=== PATIENT | male | born 1980 | race Caucasian/White ===

== ENCOUNTER 2021-09-16 16:44 | Outpatient (CLI) | payer OTHER, SELFPAY ==
--- NOTE | ~2021-09-16 | XR_ITS ---
EXAMINATION: XR shoulder RT min 2V INDICATION: Right shoulder pain TECHNIQUE: Four views of the right shoulder are submitted. COMPARISON: None FINDINGS: Normal alignment. No fracture. Glenohumeral and acromioclavicular joint spaces are normal. Soft tissues are unremarkable. IMPRESSION: 1. No acute osseous abnormality. Reviewed, dictated and finalized at location A. R MECHANIC
== END 2021-09-16 16:45 | disposition home or self-care (01) ==
PROVIDERS: PCP Family Medicine; Visit Provider Physician Assistant
DX: M25.511 Pain in right shoulder (principal)
CPT/HCPCS: 73030

== ENCOUNTER 2022-08-24 08:26 | Emergency (ER) | payer OTHER, SELFPAY ==
[2022-08-24 08:42] VITALS: BP 117/79; PULSE 122; RESP 18; TEMP 36.9; O2SAT 97
--- NOTE | 2022-08-24 09:02 | ED.URI ---
HPI - URI/Sore Throat General Chief Complaint: Upper Respiratory Infection Stated Complaint: sorethroat,bodyaches Source: patient Mode of arrival: ambulatory Limitations: no limitations History of Present Illness HPI Narrative: 42-year-old male presents to [facility] with complaints of sore throat, body aches and fever since yesterday. Patient's daughter was diagnosed 4 days ago with influenza and strep throat. Patient has been taking [id number] Tylenol with minimal relief. Patient is a nonsmoker. Patient denies recent travel. Patient denies nausea, vomiting or diarrhea, cough, congestion, runny nose or ear pain. MD elicited complaint: sore throat Onset (ago): day(s) (1) Consistency: constant Able to tolerate fluids by mouth: Yes Exacerbating factors: swallowing Context: sick contacts Treatments prior to arrival: acetaminophen Related Data Home Medications Medication Instructions Recorded Confirmed sumatriptan succinate 50 mg tablet See Rx Instructions PO .COMPLEX 08/14/19 08/24/22 (Imitrex) Allergies Allergy/AdvReac Type Severity Reaction Status Date / Time No Known Allergies Allergy Unknown Uncoded 11/06/21 15:35 Review of Systems Constitutional: Constitutional: Reports chills, Denies fatigue, Reports fever(s) and Denies weakness ENT: Denies dizziness, Denies epistaxis, Denies nasal congestion and Reports sore throat Gastrointestinal: Gastrointestinal: Denies diarrhea, Denies nausea and Denies vomiting Integumentary/Breasts: Skin/Breast: Denies rash PMFSH Surgical History Surgical History Hx of rhinoplasty Family History Family History Father Hypertension Social History Social History Smoking status: Never smoker Second hand tobacco smoke exposure: No Alcohol intake: current Drinks per week: 7 Substance use: never Substance use type: does not use Living arrangements: with family Occupation/Education: occupation Gender identity (if verbalized by the patient): Male Comments At time of signature, I agree with nursing past medical, surgical, social and family history. There is no relevant family history pertinent to the presenting complaint. Exam Const: General: healthy appearing and no acute distress Nutritional Appearance: well nourished Orientation/consciousness: patient oriented x3 Limitations: no limitations HENMT: Head: normal to inspection Ears: external ears normal, TM's normal bilaterally and EAC's normal Face/Nose/Sinus: Normal nares present Mouth: Yes Normal oral and palatal mucosa present, Yes lip normal and Yes moist mucous membranes Teeth and gingiva: dentition normal Throat: uvula midline Other: 2+ SWELLING AND ERYTHEMA NOTED TO BILATERAL TONSILS. UVULA IS MIDLINE AND THERE IS NO PERITONSILLAR ABSCESS NOTED. Eyes: Conjunctivae: conjunctivae normal Neck: Neck: normal visual inspection Chest: Chest palpation & inspection: normal inspection of the chest Resp: Effort & Inspection: normal respiratory effort and not labored Auscultation: clear to auscultation bilaterally, no crackles, no rales and no rhonchi Cardio: Rate: tachycardic Rhythm: regular rhythm Heart sounds: no murmurs Skin: General skin exam: normal color Rashes: no rashes Neuro: General: patient oriented x3 Speech: normal speech Psych: Affect: normal affect Attitude: cooperative Course Course Level of Care: Express Care Visit Vital Signs Vital signs: Vital Signs Temperature 36.9 C 08/24/22 08:42 Pulse Rate 122 H 08/24/22 08:42 Respiratory Rate 18 08/24/22 08:42 Blood Pressure 117/79 08/24/22 08:42 Pulse Oximetry 97 08/24/22 08:42 Oxygen Delivery Room Air 08/24/22 08:42 Temperature 36.9 C 08/24/22 08:42 Pulse Rate 122 H 08/24/22 08:42 Respiratory Rate 18 08/24/22 08:42 B
== END 2022-08-24 09:13 | disposition home or self-care (01) ==
PROVIDERS: Emergency Provider Nurse Practitioner Family; PCP Family Medicine
DX: J02.0 Streptococcal pharyngitis (principal); F41.9 Anxiety disorder, unspecified
CPT/HCPCS: 87804; 87880; 99213; G0463

== ENCOUNTER 2023-11-05 14:05 | Outpatient (CLI) | payer OTHER, SELFPAY ==
--- NOTE | ~2023-11-05 | XR_ITS ---
XR abdomen/kub 1V 11/05/2023 14:41 INDICATION: Kidney stones TECHNIQUE: KUB COMPARISON: None FINDINGS: Bowel gas pattern is normal. There is no evidence of free air, mass, organomegaly, ascites or obstruction. No abnormal calculi are seen. There are pelvic phleboliths. The bones appear intact . IMPRESSION: 1: No acute abdominal abnormality identified. Reviewed, dictated and finalized at location A.
--- NOTE | ~2023-11-05 | CT_ITS ---
EXAMINATION: CT abdomen pelvis wo con DATE: 11/05/2023 14:34 INDICATION: Calcium kidney stones TECHNIQUE: Computed tomography (CT) of the abdomen and pelvis was performed without intravenous contr ast. Automated exposure control and iterative reconstruction technique were employed. The dose-length product was 445.87 mGy-cm. COMPARISON: None FINDINGS: In patchy groundglass opacities at the bilateral lung bases most prominent in the left lower lobe whi ch could represent atelectasis, mild pulmonary edema or less likely pneumonia. Heart size is normal. No pericardial or pleural effusion. Liver, gallbladder, spleen, pancreas and bilateral adrenal glands are normal. A few 1 mm nonobstructing renal stones, 2 in the mid right kidney and one at the upper p ole of the left kidney. No stones seen along the course of the bilateral normal ureters. Bowels including the appendix are no rmal. Bladder is normal. Mild prostatomegaly. No free intraperitoneal gas or fluid. No pathologically enlarged abdominal or pelvic lymphadenopathy. Mild lumbar and mild to moderate thoracic spondylosis. IMPRESSION: 1. 1 mm smaller nonobstructing renal stones, 2 at the right kidney and one at the left kidney. 2. Mild groundglass opacities at the bilateral lower lungs which in order of likelihood could represe nt atelectasis, mild pulmonary edema or pneumonia. Reviewed, dictated and finalized at location B. IMPRESSION: 1. 1 mm smaller nonobstructing renal stones, 2 at the right kidney and one at t he left kidney. 2. Mild groundglass opacities at the bilateral lower lungs which in order of li kelihood could represent atelectasis, mild pulmonary edema or pneumonia.
== END 2023-11-05 14:06 | disposition home or self-care (01) ==
LOC: ANHIMG 14:05
PROVIDERS: PCP Family Medicine; Visit Provider Urology
DX: N20.0 Calculus of kidney (principal); R91.8 Other nonspecific abnormal finding of lung field; Z87.442 Personal history of urinary calculi
CPT/HCPCS: 74018; 74176